=== PATIENT | female | born 1985 | race Caucasian/White ===

== ENCOUNTER 2020-01-31 18:48 | Emergency (ER) | payer BC ==
[2020-01-31] MEDS ORDERED: Lidocaine 1% 10 ML MDV INJECT ONE (19:04)
--- NOTE | 2020-01-31 19:08 | EDM.PDOC ---
ED HPI GENERAL MEDICAL PROBLEM - General Chief Complaint: Laceration Stated Complaint: LEFT LEG INJURY Time Seen by Provider: 01/31/20 18:58 - History of Present Illness INITIAL COMMENTS - FREE TEXT/NARRATIVE: History of present illness: [] Patient tripped over her foot and does not know she struck a sharp object or just bent her toe back. This happened just prior to arrival when she was chasing a cat. She has severe pain and blood loss from the plantar surface of the second toe of her left foot. She had his tetanus shot 6 or 7 years ago. Pain is severe and worse when she tries to move it or touches it. She is on control and does not think there is any possibility she is . Review of systems: As per history of present illness and below otherwise all systems reviewed and negative. Past medical history: As per history of present illness and as reviewed below otherwise noncontributory. Surgical history: As per history of present illness and as reviewed below otherwise noncontributory. Social history: No reported history of drug or alcohol abuse. Family history: As per history of present illness and as reviewed below otherwise noncontributory. Physical exam: Constitutional - well developed, well-nourished and in no acute distress HEENT - normocephalic, no evidence of trauma - external nose and mouth normal - no mass in neck and no JVD - mucosae moist EYES - full EOM, PERRL, no icterus - no evidence of inflammation, injection, or drainage Respiratory - no respiratory distress, equal bilateral expansion Musculoskeletal left lower extremity has tenderness at the distal metatarsal #2 and at the MPJ and proximal digit #2. Otherwise no gross deformity of long bones or joints - no tenderness, swelling or edema Neurologic - Alert and oriented times four - CN II-XII grossly intact - motor sensory and coordination symmetrically normal Psychiatric - appropriate mood and affect with normal thought content Hematologic - No petechiae or purpura - mucosa appropriate color and sclera not pale - normal nail bed color and refill Integument -1 cm laceration at the plantar MPJ #2-otherwise no rash or evidence of trauma - normal turgor Diagnostics: [] Therapeutics: [] Impression: [] Plan: [] Definitive disposition and diagnosis as appropriate pending reevaluation and review of above. laceration to L toe Pain Score (Numeric/FACES): 5 - Related Data Allergies Allergy/AdvReac Type Severity Reaction Status Date / Time No Known Allergies Allergy Verified 01/31/20 18:57 Home Meds: Home Meds norgestimate-ethinyl estradioL [Sprintec 28 Day Tablet] 1 tab PO ASDIRECTED 01/31/20 [History] Past Medical History - Past Health History Medical/Surgical History: Denies Medical/Surgical History - Infectious Disease History Infectious Disease History: Reports: Chicken Pox - Past Surgical History Musculoskeletal Surgical History: Reports: Other (See Below) Other Musculoskeletal Surgeries/Procedures:: Left Forearm Social & Family History - Family History Family Medical History: No Pertinent Family History - Tobacco Use Tobacco Use Status *Q: Never Tobacco User - Recreational Drug Use Recreational Drug Use: No ED ROS GENERAL - Review of Systems Review Of Systems: Comprehensive ROS is negative, except as noted in HPI. ED EXAM, SKIN/RASH Exam: See Below Text/Narrative:: My physical exam is in the HPI ED SKIN PROCEDURES - Laceration/Wound Repair Left Toe - Second Appearance: Subcutaneous Distal NVT: Neuro & Vascular Intact Anesthetic Type: Local Local Anesthesia - Lidocaine (Xylocaine): 1% Plain Local Anesthetic Volume: 5cc Skin Prep: Providone-Iodine (Betadine), Saline, Sterile Drape Exploration/Debridement/Repair: Wound Explored Closed with: Sutures Lac/Wound length In cm: 1 Suture Size: 4-0 Suture Type: Nylon # of Sutures: 3 Tetanus Status Addressed: Yes Complications: No Course - Vital Signs Text/Narrative:: X-ray was negative. Wound was explored and had no contamination or tendon laceration. Function was normal after anesthetic. Last Recorded V/S: Last Vital Signs Temp 36.3 C 01/31/20 18:55 Pulse 126 H 01/31/20 18:55 Resp 18 01/31/20 18:55 BP 130/74 01/31/20 18:55 Pulse Ox 97 01/31/20 18:55 - Orders/Labs/Meds Orders: Active Orders 24 hr Category Date Time Status Communication Order [RC] STAT Care 01/31/20 19:04 Active Vaccines to be Administered [RC] PER UNIT ROUTINE Care 01/31/20 19:41 Ordered Foot 2V Lt [CR] Stat Exams 01/31/20 19:04 Taken Diphth,Pertuss(Acell),Tet Vac [Adacel] Med 01/31/20 19:41 Once 0.5 ml IM .ONCE ONE Meds: Medications Discontinued Medications Generic Name Dose Route Start Last Admin Trade Name Teddy PRN Reason Stop Dose Admin Lidocaine HCl 10 ml 01/31/20 19:04 Xylocaine 1% INJECT 01/31/20 19:05 ONETIME ONE Lidocaine HCl Confirm 01/31/20 19:14 Xylocaine-Mpf 1% Administered 01/31/20 19:15 Dose 5 ml .ROUTE .STK-MED ONE Departure - Departure Time of Disposition: 19:55 Disposition: Home, Self-Care 01 Condition: Good Clinical Impression: Laceration of toe of left foot - Discharge Information Instructions: Laceration Care, Adult, Ehcr-br-Onit Referrals: Sánchez Acosta MD [Primary Care Provider] - Forms: ED Department Discharge Additional Instructions: Sutures out in 7 to 10 days probably better to wait closer to 10. Turn if increased pain with red streaking fever or drainage [facility] [address] [place] [address] [id number] The following information is given to patients seen in the emergency department who are being discharged to home. This information is to outline your options for follow-up care. We provide all patients seen in our emergency department with a follow-up referral. The need for follow-up, as well as the timing and circumstances, are variable depending upon the specifics of your emergency department visit. If you don't have a primary care physician on staff, we will provide you with a referral. We always advise you to contact your personal physician following an emergency department visit to inform them of the circumstance of the visit and for follow-up with them and/or the need for any referrals to a consulting specialist. The emergency department will also refer you to a specialist when appropriate. This referral assures that you have the opportunity for follow-up care with a specialist. All of these measure are taken in an effort to provide you with optimal care, which includes your follow-up. Under all circumstances we always encourage you to contact your private physician who remains a resource for coordinating your care. When calling for follow-up care, please make the office aware that this follow-up is from your recent emergency room visit. If for any reason you are refused follow-up, please contact the [facility] Emergency Department at and asked to speak to the emergency department charge nurse. Sepsis Event Note (ED) - Evaluation Sepsis Screening Result: No Definite Risk - Focused Exam Vital Signs: Vital Signs Temp Pulse Resp BP Pulse Ox 01/31/20 18:55 36.3 C 126 H 18 130/74 97 - My Orders Last 24 Hours: My Active Orders 01/31/20 19:04 Communication Order [RC] STAT Foot 2V Lt [CR] Stat 01/31/20 19:41 Vaccines to be Administered [RC] PER UNIT ROUTINE Diphth,Pertuss(Acell),Tet Vac [Adacel] 0.5 ml IM .ONCE ONE - Assessment/Plan Last 24 Hours: My Active Orders 01/31/20 19:04 Communication Order [RC] STAT Foot 2V Lt [CR] Stat 01/31/20 19:41 Vaccines to be Administered [RC] PER UNIT ROUTINE Diphth,Pertuss(Acell),Tet Vac [Adacel] 0.5 ml IM .ONCE ONE
[2020-01-31] MEDS ORDERED: Diphtheria,Pertussis(Acell),Tetanus Vaccine 0.5 ML Syringe IM ONE (19:41)
--- NOTE | 2020-01-31 19:43 | CR ---
Indication : Trauma to 2nd digit MPJ on left foot. TECHNIQUE: Two views left foot. FINDINGS: No acute fracture or subluxation in left foot. No significant abnormalities in left foot. Remainder negative. Dictated by Ortiz Koehler MD @ Jan 31 2020 7:41PM Signed by Dr. Ortiz Koehler @ Jan 31 2020 7:41PM
[2020-01-31 20:29] VITALS: BP 138/76; PULSE 83
== END 2020-01-31 20:35 | disposition home or self-care (01) ==
LOC: MW.ED 18:48
DX: S91.115A Laceration without foreign body of left lesser toe(s) without damage to nail, initial encounter (principal); Z23 Encounter for immunization; W18.40XA Slipping, tripping and stumbling without falling, unspecified, initial encounter
CPT/HCPCS: 12001; 73620; 90471; 90715; 99283; J2001; 99282